=== PATIENT | male | born 1965 | race Caucasian/White ===

== ENCOUNTER 2019-07-10 09:02 | Inpatient (IN) | payer OTHER ==
[~2019-07-10] VITALS: Ht 167.6 cm; Wt 130.3 kg
[2019-07-10 09:25] LABS: ABSOLUTE EOSINOPHILS 0.1 thou/uL (0.0-0.7); ABSOLUTE LYMPHOCYTES 1.4 thou/uL (0.8-5.3); ABSOLUTE MONOCYTES 0.5 thou/uL (0.0-1.2); ABSOLUTE NEUTROPHILS 4.8 thou/uL (1.6-8.1); BASOPHILS 0.6 %; EOSINOPHILS 1.4 %; HEMATOCRIT 45.5 % (42.0-52.0); HEMOGLOBIN 15.8 gm/dL (14.0-18.0); LYMPHOCYTES 21.3 %; MCHC 34.7 g/dL (28.0-37.0); MCV 83.7 fL (80.0-100.0); MONOCYTES 6.8 %; MPV 7.6 fl. (7.2-11.1); NUCLEATED RBCS 0 /100WBC; PLATELET COUNT* 295 thou/uL (150-400); POLYS 69.9 %; RBC 5.44 mil/uL (4.50-6.00); RDW-CV 14.4 % (10.5-14.5); WBC 6.8 thou/uL (4.0-11.0)
[2019-07-10 09:33] LABS: CALCIUM 8.6 mg/dL (8.5-10.1); POTASSIUM 4.1 mmol/L (3.5-5.1)
[2019-07-10 09:34] LABS: APTT 29.5 Seconds (25.0-31.3); PROTIME 10.2 Seconds (9.20-11.50)
[2019-07-10 09:43] LABS: ALBUMIN 3.8 g/dL (3.4-5.0); MAGNESIUM 2.1 mg/dL (1.8-2.4); TOTAL BILIRUBIN 0.6 mg/dL (<0.1-1.0); TOTAL PROTEIN 7.7 g/dL (6.4-8.2)
[2019-07-10 10:48] VITALS: BP 151/93
[2019-07-10 11:00] VITALS: BP 142/92
[2019-07-10] MEDS ORDERED: OMEPRAZOLE 20 M20 M1 PO (11:43)
[2019-07-10] MEDS ORDERED: CHILDREN'S ASPI81 M1 PO (11:44)
[2019-07-10 11:56] VITALS: BP 156/86
[2019-07-10 13:54] LABS: CHOLESTEROL 166 mg/dL (<200); HDL CHOLESTEROL 29 mg/dL (>40); LDL CHOLESTEROL 119 mg/dL (<100); TC:HDL 5.7 Ratio (Not establshd); TRIGLYCERIDE 92 mg/dL (<150); VLDL 18 mg/dL (<40)
[2019-07-10 13:58] LABS: SERUM ASSESSMENT Clear
--- NOTE | 2019-07-10 14:33 | EKG ---
[place] [address] ELECTROCARDIOGRAM REPORT Name: ZULY BAUTISTA Room: [address] ADM IN .R.#: [id number] Admission: 07/10/19 Attend Phys: Rodney Carmen, Discharge: Date of : 67 Date of Service: 07/10/19 0905 Report #: [id number] THIS REPORT FOR: //name// [facility] ED Test Date: 2019-07-10 Test Time: 09:05:11 Pat Name: ZULY BAUTISTA Department: Room: [facility] Gender: M Mapping Editor: [facility] : 1965 Requested By: Jorge Toribio Order Number: [id number] MD: Casey Norman Measurements Intervals [place] Rate: 98 P: 50 [place]: 158 QRS: 27 QRSD: 91 T: 41 QT: 335 QTc: 428 Interpretive Statements Sinus rhythm Abnormal R-wave progression, early transition No previous ECG available for comparison Electronically Signed On 07-10-2019 14:31:27 CDT by Casey Norman [email or web address] <ELECTRONICALLY SIGNED> By: Casey Norman MD, [facility] 07/10/19 1431 0905 0905 Casey Norman MD, [facility] /EPI
--- NOTE | 2019-07-10 16:15 | 2DMMODE ---
[place] [address] 2 D/M-MODE ECHOCARDIOGRAM Name: ZULY BAUTISTA Room: [address] IN [facility]#: [id number] Admission: 07/10/19 Attend Phys: Rodney Carmen, Discharge: Date of : 67 Date of Service: 07/10/19 1613 Report #: [id number] THIS REPORT FOR: cc: FAM - No family physician/PCP FAM - No family physician/PCP James Hanks MD [facility] ~ ADDENDUM APPROVED REPORT Study performed: 07/10/2019 14:41:50 EXAM: Comprehensive 2D, Doppler, and color-flow Echocardiogram Patient Location: In-Patient Room #: [facility] Status: routine BSA: 2.38 HR: 82 bpm BP: 156/86 mmHg Rhythm: NSR Other Information Study Quality: Good Indications Chest Pain Hypertension/HDD 2D Dimensions IVSd: 11.87 (7-11mm) LVOT Diam: 24.50 (18-24mm) LVDd: 53.22 mm PWd: 12.44 (7-11mm) Ascending Ao: 36.12 (22-36mm) LVDs: 25.76 (25-40mm) Aortic Root: 36.78 mm Volumes Left Atrial Volume (Systole) LA ESV Index: 24.70 mL/m2 Aortic Valve AoV Peak Gomez.: 1.25 m/s AO Peak Gr.: 6.22 mmHg LVOT Max P.79 mmHg AO Mean Gr.: 3.60 mmHg LVOT Mean P.12 mmHg LVOT Max V: 1.30 m/s AO V2 VTI: 24.92 cm LVOT Mean V: 0.80 m/s CAREY (VTI): 4.82 cm2 LVOT V1 VTI: 25.49 [place] [address] 2 D/M-MODE ECHOCARDIOGRAM Name: ZULY BAUTISTA Room: [address] IN [facility]#: [id number] Admission: 07/10/19 Attend Phys: Rodney Carmen, Discharge: Date of : 67 Date of Service: 07/10/19 1613 Report #: [id number] Mitral Valve E/A Ratio: 0.87 MV Decel. Time: 236.20 ms MV E Max Gomez.: 0.73 m/s MV PHT: 68.50 ms MVA (PHT): 3.21 cm2 TDI E/Lateral E': 8.11 E/Medial E': 8.11 Medial E' Gomez.: 0.09 m/s Lateral E' Gomez.: 0.09 m/s Pulmonary Valve PV Peak Gomez.: 1.16 m/s PV Peak Gr.: 5.39 mmHg Left Ventricle The left ventricle is normal size. There is normal LV segmental wall motion. Mild concentric left ventricular hypertrophy. Left ventricular systolic function is normal. LVEF is 55-60%. Grade I - abnormal relaxation pattern. Right Ventricle The right ventricle is normal size. The right ventricular systolic function is normal. Atria The left atrium size is normal. The right atrium size is normal. Aortic Valve The aortic valve is normal in structure. No aortic regurgitation is present. There is no aortic valvular stenosis. Mitral Valve The mitral valve is normal in structure. There is no mitral valve regurgitation noted. No evidence of mitral valve stenosis. Tricuspid Valve The tricuspid valve is normal in structure. Trace tricuspid regurgitation. Pulmonic Valve The pulmonary valve is normal in structure. There is no [place]mon[place] [address] 2 D/M-MODE ECHOCARDIOGRAM Name: LILYZULY Austin Room: [address] IN [facility]#: [id number] Admission: 07/10/19 Attend Phys: Rodney Carmen, Discharge: Date of : 67 Date of Service: 07/10/19 1613 Report #: [id number] Great Vessels The aortic root is normal in size. IVC is normal in size and collapses >50% with inspiration. Pericardium There is no pericardial effusion. <Conclusion> The left ventricle is normal size. Mild concentric left ventricular hypertrophy. Left ventricular systolic function is normal. LVEF is 55-60%. Grade I - abnormal relaxation pattern. Trace tricuspid regurgitation. IVC is normal in size and collapses >50% with inspiration. <ELECTRONICALLY SIGNED> By: James Hanks MD, FACC 07/10/19 1613 161 [id number] James Hanks MD, FACC /INF
[2019-07-10 17:25] VITALS: BP 128/61
[2019-07-10 19:50] VITALS: BP 141/72
[2019-07-11] VITALS: BP 105/49
[2019-07-11 04:00] VITALS: BP 126/72
[2019-07-11 04:50] LABS: ABSOLUTE EOSINOPHILS 0.1 thou/uL (0.0-0.7); ABSOLUTE LYMPHOCYTES 1.6 thou/uL (0.8-5.3); ABSOLUTE MONOCYTES 0.6 thou/uL (0.0-1.2); ABSOLUTE NEUTROPHILS 4.4 thou/uL (1.6-8.1); BASOPHILS 0.7 %; EOSINOPHILS 2.1 %; HEMATOCRIT 44.6 % (42.0-52.0); HEMOGLOBIN 15.3 gm/dL (14.0-18.0); LYMPHOCYTES 23.7 %; MCH 29.3 pg (26.0-34.0); MCHC 34.3 g/dL (28.0-37.0); MCV 85.5 fL (80.0-100.0); MONOCYTES 8.5 %; MPV 8.1 fl. (7.2-11.1); NUCLEATED RBCS 0 /100WBC; PLATELET COUNT* 281 thou/uL (150-400); RBC 5.22 mil/uL (4.50-6.00); RDW-CV 14.8 % (10.5-14.5); WBC 6.7 thou/uL (4.0-11.0)
[2019-07-11 05:13] LABS: CALCIUM 8.9 mg/dL (8.5-10.1); POTASSIUM 3.8 mmol/L (3.5-5.1)
[2019-07-11 07:50] VITALS: BP 136/97
[2019-07-11] MEDS ORDERED: LISINOPRIL-HCT1 EAC2 PO (09:37)
[2019-07-11] MEDS ORDERED: ZOCOR20 MG PO (09:39)
[2019-07-11 09:46] VITALS: BP 136/97
== END 2019-07-11 11:00 | disposition home or self-care (01) | DRG 305 ==
LOC: M.ERS 09:02 → M.TBA-ER 09:56 → M.2W 09:56
PROVIDERS: Emergency Medicine Emergency Medical Services; Registered Nurse; ADMIT Internal Medicine
DX: I16.1 Hypertensive emergency (principal); F17.210 Nicotine dependence, cigarettes, uncomplicated; E66.01 Morbid (severe) obesity due to excess calories; G47.33 Obstructive sleep apnea (adult) (pediatric); Z68.42 Body mass index [BMI] 45.0-49.9, adult; Z71.6 Tobacco abuse counseling